=== PATIENT | female | born 1960 | race Caucasian/White ===

== ENCOUNTER 2020-01-04 11:40 | Emergency (ER) | payer OTHER, SELFPAY ==
[2020-01-04 12:04] VITALS: BP 118/79; PULSE 65; RESP 18; TEMP 35.8; O2SAT 99
--- NOTE | 2020-01-04 12:15 | ED.SKABFB ---
HPI - Skin/Abscess/Foreign Bdy General Chief complaint: Skin/Abscess/Foreign Body Stated complaint: itchy/redness right foot Time Seen by Provider: 01/04/20 12:16 Source: patient and RN notes reviewed Mode of arrival: ambulatory Limitations: no limitations History of Present Illness HPI narrative: This is a 59 years old female presents to the office for an evaluation of rash on her right heel for six months. She saw her doctor who told her it was athletic foot, who prescribed her an antifungal cream on her feet which she try for 2 weeks. She stopped because she did not think it was doing anything. She does not think it was fungus, that is why she wanted a second opinion. She did not follow-up with her family physician. She finally decided to come in today because it begins to cause some discomfort when she walks on it. Denies recent injury/trauma. Related Data Home Medications Medication Instructions Recorded Confirmed Buspar 01/04/20 Lexapro 01/04/20 01/04/20 albuterol sulfate INHALATION 01/04/20 Allergies Allergy/AdvReac Type Severity Reaction Status Date / Time No Known Allergies Allergy Verified 01/04/20 12:08 Review of Systems Review of Systems: Narrative: CONSTITUTIONAL: Denies fever, chills CARDIOVASCULAR: Denies chest pain RESPIRATORY: Denies dyspnea GASTROINTESTINAL: Denies abdominal pain, nausea, vomiting SKIN: Reports sore/lesion on her right heel for six month MUSCULOSKELETAL: Denies joints pain. Reports right ankle heel pain when she walks on it. NEUROLOGIC: Denies lightheaded All systems reviewed & are unremarkable except as noted in HPI and below PMFSH Past Medical History Medical History (Updated 01/04/20 @ 12:39 by EBONY Uriarte) Anxiety Depression Comments At time of signature, I agree with nursing past medical, surgical, social and family history. There is no relevant family history pertinent to the presenting complaint. Exam Narrative: Exam Narrative: GENERAL: This is a well-nourished, well-developed patient, in no apparent distress. CARDIOVASCULAR: Regular rate and rhythm without murmurs, gallops, or rubs. RESPIRATORY: Clear to auscultation. Breath sounds equal bilaterally. No wheezes, rales, or rhonchi. GASTROINTESTINAL: Abdomen soft, non-tender, nondistended. Bowel sounds are active. No hepato-splenomegaly, or palpable masses. No guarding. SKIN: left plantar aspect of heel noted scaling scalp lesions, erythematous with follicular pustules that localize to heel of right foot. Left foot normal. Pulse intact. NEURO: awake, alert, and oriented to person, place and time. There were no obvious focal neurologic abnormalities. Steady gait EXTREMITIES: Normal range of motion. No edema. [place] Coma Scale Eye Opening: Spontaneous 4 [place] Coma Scale Motor: Obeys Commands 6 Bob Coma Scale Verbal: Oriented 5 Course Vital Signs Vital signs: Vital Signs Temperature 96.4 F L 01/04/20 12:04 Pulse Rate 65 01/04/20 12:04 Respiratory Rate 18 01/04/20 12:04 Blood Pressure 118/79 01/04/20 12:04 Pulse Oximetry 99 01/04/20 12:04 Temperature 96.4 F L 01/04/20 12:04 Pulse Rate 65 01/04/20 12:04 Respiratory Rate 18 01/04/20 12:04 Blood Pressure 118/79 01/04/20 12:04 Pulse Oximetry 99 01/04/20 12:04 MDM - Skin/Abscess/Foreign Bdy MDM Narrative Medical decision making narrative: Discharge instructions reviewed with patient, as well as provided in writing per nursing staff. The instructions also include specific and strict return/GO TO THE ER as well as f/u information. All questions have been answered, and the patient* deny any further questions with discharge and discharge plan. Differential Diagnosis Differential diagnosis: Likely abscess of skin or subcutaneous tissue, dermatophytosis, urticaria, herpes zoster, cellulitis, eczema, insect bites, impetigo and contact dermatitis Critical Care Time Critical Care Time Critical Care Time
== END 2020-01-04 12:36 | disposition home or self-care (01) ==
PROVIDERS: Emergency Provider Nurse Practitioner; PCP Family Medicine
DX: B35.3 Tinea pedis (principal); F41.9 Anxiety disorder, unspecified; F32.9 Major depressive disorder, single episode, unspecified
CPT/HCPCS: 99213; G0463

== ENCOUNTER 2020-01-22 09:53 | Emergency (ER) | payer OTHER, SELFPAY ==
--- NOTE | 2020-01-22 10:00 | ED.GENADULT ---
HPI - General Adult General Chief complaint: Eye Problems Stated complaint: eye problems Time Seen by Provider: 01/22/20 10:09 Source: patient Mode of arrival: ambulatory Limitations: no limitations History of Present Illness HPI narrative: 59-year-old female patient presents to the [facility] with complaints of right eye pain for the past 2 days. Patient states that she noticed that there was some pus coming out of the bottom lid this morning until she come and get checked out. Patient states she has not been doing anything for the eye that she is aware of. Patient denies any vision changes. Denies any pain. Denies any fevers. Related Data Home Medications Medication Instructions Recorded Confirmed albuterol sulfate INHALATION 01/04/20 bupropion HCl (smoking deter) mg PO 01/22/20 escitalopram oxalate mg 01/22/20 Allergies Allergy/AdvReac Type Severity Reaction Status Date / Time No Known Allergies Allergy Verified 01/22/20 10:08 Review of Systems Review of Systems: Narrative: CONSTITUTIONAL: Denies fever, chills, or sweats. EYES: Denies visual changes, positive right eye redness and discharge. ENT: Denies rhinorrhea, congestion, sore throat, or otalgia. CARDIOVASCULAR: Denies chest pain, palpitations, or edema. RESPIRATORY: Denies cough or dyspnea. GASTROINTESTINAL: Denies abdominal pain, nausea, vomiting, or diarrhea. GENITOURINARY: Denies dysuria or hematuria. SKIN: Denies rash or itching. MUSCULOSKELETAL: Denies back pain, joint pain, or myalgia. NEUROLOGIC: Denies headache, numbness, or weakness. PSYCHIATRIC: Denies anxiety or depression. PMFSH Past Medical History Medical History Anxiety Depression Comments At the time of my signature I agree with nursing past medical history, surgical, social, and family history. There is no relevant family history pertinent to the presenting complaint. Exam Narrative: Exam Narrative: GENERAL: Well-appearing, well-nourished, and in no acute distress. HEAD: Normocephalic, atraumatic. EYES: PERRLA and EOM intact without limitation or complaint of pain, no periorbital soft tissue swelling ,no erythema, warmth or tenderness noted, no obvious deformity. No crusting or swelling.no tearing or draining.No photophobia. No nystagmus patient has stye noted on the lower lid of the right eye on eversion. Does appear to be draining a little bit to the area.. Corneas grossly clear, no obvious FB or hyphens/hypopyon. No injection to sclera. Lids and lashes clear.. ENT: Nares clear, no rhinorrhea or epistaxis. Mucous membranes moist. NECK: Supple. No lymphadenopathy CHEST: Clear to auscultation. No respiratory distress. HEART: Regular rate and rhythm. No murmur heard. Normal peripheral pulses. ABDOMEN: Soft, nontender, nondistended, normal active bowel sounds. EXTREMITIES: Normal range of motion. No edema. SKIN: Warm, dry, no rash. NEURO: No focal deficits. Alert and oriented x3. Course Vital Signs Vital signs: Vital Signs Temperature 36.9 C 01/22/20 10:02 Pulse Rate 81 01/22/20 10:02 Respiratory Rate 16 01/22/20 10:02 Blood Pressure 117/88 01/22/20 10:02 Pulse Oximetry 99 01/22/20 10:02 Temperature 36.9 C 01/22/20 10:02 Pulse Rate 81 01/22/20 10:02 Respiratory Rate 16 01/22/20 10:02 Blood Pressure 117/88 01/22/20 10:02 Pulse Oximetry 99 01/22/20 10:02 Vital signs reviewed. The patient has been informed that they may have pre-hypertension or Hypertension based on a BP reading in the department. I recommend that the patient call the primary care provider listed on their discharge instructions or a physician of their choice this week to arrange follow up for further evaluation of possible pre-hypertension or Hypertension Medical Decision Making Differential Diagnosis Differential Diagnosis: Differential diagnosis: Conjunctivitis, foreign body, corneal ulcer, Keratitis, dendritic lesio
[2020-01-22 10:02] VITALS: BP 117/88; PULSE 81; RESP 16; TEMP 36.9; O2SAT 99
== END 2020-01-22 10:20 | disposition home or self-care (01) ==
PROVIDERS: Emergency Provider Nurse Practitioner Family; PCP Family Medicine
DX: H00.022 Hordeolum internum right lower eyelid (principal); F41.9 Anxiety disorder, unspecified; F32.9 Major depressive disorder, single episode, unspecified
CPT/HCPCS: 99213; G0463

== ENCOUNTER 2020-03-08 15:33 | Emergency (ER) | payer OTHER, SELFPAY ==
--- NOTE | ~2020-03-08 | XR_ITS ---
EXAMINATION: XR chest 2V DATE: 03/08/2020 16:37 INDICATION: Chest pain and shortness of breath TECHNIQUE: PA and lateral views of the chest were obtained. COMPARISON: Chest radiograph dated 04/05/2019 FINDINGS: Unchanged mild eventration along the right hemidiaphragm. Small left paracardial fat pad. No focal ai rspace opacities, pulmonary edema, pleural effusion or pneumothorax. The cardiomediastinal silhouette is normal. There are several old right-sided rib fractures. Mild thoracic spondylosis. IMPRESSION: 1. No acute cardiopulmonary disease. Reviewed, dictated and finalized at location A.
--- NOTE | 2020-03-08 15:34 | ECG_ITS ---
Measurements Intervals [place] Rate: 79 P: 69 GA: 192 QRS: 54 QRSD: 78 T: 51 QT: 356 QTc: 410 Interpretive Statements SINUS RHYTHM BASELINE ARTIFACT- I, II, III, AVR, AVL, AVF, V2-V6 BORDERLINE ECG Electronically Signed On 03-08-2020 19:31:45 CDT by Lyle Kaufman D.O.
--- NOTE | 2020-03-08 15:41 | ED.CHESTPAIN ---
HPI - Chest Pain General Chief Complaint: Chest Pain Stated Complaint: CP, bumps left leg Time Seen by Provider: 03/08/20 15:39 History of Present Illness HPI narrative: Chest pain for the past week. Mild. Sharp. Worse with taking a deep breath. Associated with SOB. Improves with albuterol. She has COPD and is still a daily smoker. Additionally she reports that she saw bumps on her veins this mornig, which are no longer there. She showed me pictures which seem to show tortuocity of mildly dilated veins. Related Data Home Medications Medication Instructions Recorded Confirmed albuterol sulfate INHALATION 01/04/20 bupropion HCl (smoking deter) mg PO 01/22/20 escitalopram oxalate mg 01/22/20 Allergies Allergy/AdvReac Type Severity Reaction Status Date / Time No Known Allergies Allergy Verified 01/22/20 10:08 Review of Systems Review of Systems: All systems reviewed & are unremarkable except as noted in HPI and below Constitutional: Constitutional: Denies chills, Denies fatigue, Denies fever(s) and Denies weakness Cardiovascular: Cardiovascular: Reports chest pain and Denies radiating jaw, neck or arm pain Respiratory: Respiratory: Reports dyspnea Gastrointestinal: Gastrointestinal: Denies abdominal pain and Denies nausea Musculoskeletal: Musculoskeletal: Denies back pain Integumentary/Breasts: Skin/Breast: Reports rash Neurologic: Reports numbness and Denies weakness [facility] Past Medical History Medical History Anxiety Depression Social History Social History (Updated 03/08/20 @ 18:37 by Alexsander Gill MD) Smoking status: Current every day smoker Exam Const: General: healthy appearing, no acute distress and alert Orientation/consciousness: patient oriented x3 HENMT: Head: normal to inspection Neck: Neck: normal visual inspection and no lymphadenopathy Chest: Chest palpation & inspection: no tenderness Resp: Effort & Inspection: normal respiratory effort Auscultation: no rales, no rhonchi, no wheezes and diminished lung sounds Cardio: Jugular venous distension: no JVD Rate: regular rate Rhythm: regular rhythm Heart sounds: no murmurs GI: Inspection: non-distended GI Palp: Yes Soft to palpation and No Tenderness to palpation present (GI) Skin: General skin exam: normal color Rashes: no rashes Wounds: no wounds Neuro: General: patient oriented x3 and moves all extremities Speech: normal speech Extrem: General: no edema Psych: Appearance: well kempt Affect: Anxious affect present Course Vital Signs Vital signs: Vital Signs Temperature 36.4 C L 03/08/20 15:43 Pulse Rate 83 03/08/20 15:43 Respiratory Rate 23 H 03/08/20 15:43 Blood Pressure 161/88 H 03/08/20 15:43 Pulse Oximetry 97 03/08/20 15:43 Temperature 36.4 C 03/08/20 16:16 Pulse Rate 82 03/08/20 18:00 Respiratory Rate 17 03/08/20 18:00 Blood Pressure 161/96 H 03/08/20 18:00 Pulse Oximetry 100 03/08/20 18:00 MDM - Chest Pain Lab Data Result diagrams: 03/08/20 16:16 03/08/20 16:16 Labs: Lab Results 03/08/20 03/08/20 03/08/20 Range/Units 16:16 16:16 16:16 WBC 9.3 (4.5-10.0) K/mm3 RBC 4.97 (4.2-5.4) M/mm3 Hgb 14.6 (12.0-15.0) g/dL Hct 44.7 (37.0-47.0) % MCV 89.9 (80-100) fl MCH 29.4 (26-34) pg MCHC 32.7 (32-36) g/dl RDW 14.6 H (11.5-14.5) % Plt Count 272 (150-375) k/mm3 MPV 11.5 H (7.4-10.4) fl Immature Gran % (Auto) 0.3 (0-0.5) % Neut % (Auto) 66.0 (45.5-73.1) % Lymph % (Auto) 23.7 (18.3-44.2) % [place] % (Auto) 7.1 (2.6-8.5) % Eos % (Auto) 2.3 (0-4.4) % Baso % (Auto) 0.6 (0.2-1.2) % Lymph # (Auto) 2.19 (0.9-3.2) K/mm3 [place] # (Auto) 0.7 H (0.1-0.6) K/mm3 Eos # (Auto) 0.2 (0-0.3) K/mm3 Baso # (Auto) 0.1 (0.0-0.1) K/mm3 Abs Immat Gran (auto) 0.03 (0.00-0.031) K/mm3 Absolute N
[2020-03-08 15:43] VITALS: BP 161/88; PULSE 83; RESP 23; TEMP 36.4; O2SAT 97
[2020-03-08 16:16] VITALS: BP 145/86; PULSE 70; PULSE 74; RESP 21; TEMP 36.4; O2SAT 94
[2020-03-08 16:23] LABS: Basophils Absolute Auto 0.1 K/mm3 (0.0-0.1); Basophils Percent Auto 0.6 % (0.2-1.2); Eosinophils Absolute Auto 0.2 K/mm3 (0-0.3); Eosinophils Percent Auto 2.3 % (0-4.4); Hematocrit 44.7 % (37.0-47.0); Hemoglobin 14.6 g/dL (12.0-15.0); Immature Granulocyte Absolute 0.03 K/mm3 (0.00-0.031); Immature Granulocyte Percent A 0.3 % (0-0.5); Lymphocytes Absolute Auto 2.19 K/mm3 (0.9-3.2); Lymphocytes Percent Auto 23.7 % (18.3-44.2); Mean Corpuscular HGB Conc 32.7 g/dl (32-36); Mean Corpuscular Hemoglobin 29.4 pg (26-34); Mean Corpuscular Volume 89.9 fl (80-100); Mean Platelet Volume 11.5 fl (7.4-10.4); Monocytes Absolute Auto 0.7 K/mm3 (0.1-0.6); Monocytes Percent Auto 7.1 % (2.6-8.5); Neutrophils Absolute Auto 6.1 K/mm3 (1.3-6.7); Platelet Count Result 272 k/mm3 (150-375); Red Blood Count 4.97 M/mm3 (4.2-5.4); Red Cell Distribution Width 14.6 % (11.5-14.5); White Blood Count 9.3 K/mm3 (4.5-10.0)
[2020-03-08 16:34] LABS: D Dimer 0.39 ug/mL (<0.48)
[2020-03-08 16:41] LABS: Anion Gap 8 mmol/L (8-16); Blood Urea Nitrogen 11 mg/dL (7-17); Calcium 9.5 mg/dL (8.4-10.2); Carbon Dioxide 24 mmol/L (22-30); Chloride 105 mmol/L (98-107); Estimated CRCL calculation 62 ml/min; Estimated Glomerular Filt Rate > 60; Glucose 112 mg/dL (65-105); Potassium 4.2 mmol/L (3.4-5.0); Sodium 137 mmol/L (137-145)
[2020-03-08 16:52] LABS: Troponin I < 0.012 ng/mL (0.000-0.034)
[2020-03-08 18:00] VITALS: BP 161/96; PULSE 82; RESP 17; O2SAT 100
== END 2020-03-08 18:00 | disposition home or self-care (01) ==
PROVIDERS: Emergency Provider Emergency Medicine; PCP Family Medicine
DX: R07.9 Chest pain, unspecified (principal); J44.9 Chronic obstructive pulmonary disease, unspecified; F41.9 Anxiety disorder, unspecified; F32.9 Major depressive disorder, single episode, unspecified; F17.200 Nicotine dependence, unspecified, uncomplicated; R94.31 Abnormal electrocardiogram [ECG] [EKG]
CPT/HCPCS: 36415; 71046; 80048; 84484; 85025; 85380; 93005; 99284

== ENCOUNTER 2020-06-21 07:05 | Outpatient (NON) | payer OTHER, SELFPAY ==
[2020-06-22 00:20] LABS: SARS-CoV-2 RNA PCR Negative
== END 2020-06-21 07:06 ==
LOC: ANHCOVIDDT 07:39
PROVIDERS: PCP Family Medicine; Visit Provider Family Medicine
DX: R68.89 Other general symptoms and signs (principal); Z20.828 Contact with and (suspected) exposure to other viral communicable diseases
CPT/HCPCS: 87635; C9803; U0003